=== PATIENT | female | born 1985 | race Two or more races ===

== ENCOUNTER 2020-07-26 20:06 | Emergency (ER) | payer MEDICAID ==
[~2020-07-26] VITALS: Ht 154.9 cm; Wt 90.7 kg
[2020-07-26 23:05] VITALS: BP 161/90
== END 2020-07-27 00:13 | disposition home or self-care (01) ==
LOC: EDBD 20:06 → EDUNIT# 20:06 → ER 20:12
DX: S30.1XXA Contusion of abdominal wall, initial encounter (principal); S20.01XA Contusion of right breast, initial encounter; K42.9 Umbilical hernia without obstruction or gangrene; R03.0 Elevated blood-pressure reading, without diagnosis of hypertension; V49.9XXA Car occupant (driver) (passenger) injured in unspecified traffic accident, initial encounter; Y93.89 Activity, other specified; Y92.89 Other specified places as the place of occurrence of the external cause; Y99.8 Other external cause status
CPT/HCPCS: 70450; 71045; 71250; 74176; 93005